=== PATIENT | female | born 1950 | race Caucasian/White ===

== ENCOUNTER 2017-12-12 12:08 | Emergency (ER) | payer OTHER, MEDICARE ==
[~2017-12-12] VITALS: Ht 172.7 cm; Wt 61.2 kg
[2017-12-12 12:29] LABS: URINE BILIRUBIN NEGATIVE (Negative); URINE BLOOD NEGATIVE (Negative); URINE CLARITY CLEAR; URINE COLOR YELLOW; URINE GLUCOSE-RANDOM* NEGATIVE (Negative); URINE KETONES NEGATIVE (Negative); URINE LEUKOCYTES NEGATIVE (Negative); URINE NITRITE NEGATIVE (Negative); URINE PROTEIN (DIPSTICK) NEGATIVE (Negative); URINE SPECIFIC GRAVITY <= 1.005 (1.005-1.035); URINE UROBILINOGEN 0.2 E.U./dl (0.2-1.0)
[2017-12-12] MEDS ORDERED: LOSARTAN-HCTZ1 EACH PO (12:35)
[2017-12-12] MEDS ORDERED: PROZAC10 MG PO (12:35)
[2017-12-12 12:51] LABS: ABSOLUTE NEUTROPHILS 5.1 thou/uL (1.4-8.2); BASOPHILS 0.8 % (0.0-2.0); CALCIUM 9.9 mg/dL (8.5-10.1); CREATININE 0.8 mg/dL (0.6-1.0); EOSINOPHILS 1.2 % (0.0-3.0); HEMATOCRIT 42.8 % (37.0-47.0); HEMOGLOBIN 14.6 gm/dL (12.0-15.0); LYMPHOCYTES 25.1 % (24.0-44.0); MCH 31.6 pg (26.0-34.0); MCHC 34.2 g/dL (28.0-37.0); MCV 92.5 fL (80.0-100.0); MONOCYTES 7.9 % (1.0-8.0); PLATELET COUNT 289 thou/uL (150-400); POTASSIUM 3.6 mmol/L (3.5-5.1); RBC 4.62 mil/uL (4.20-5.00); WBC 7.8 thou/uL (4.0-11.0)
[2017-12-12] MEDS ORDERED: CULTURELLE1 EACH PO (12:51)
[2017-12-12] MEDS ORDERED: FLAX SEED OIL1000 MG PO (12:52)
[2017-12-12] MEDS ORDERED: RESTASIS1 EACH OPHTHALMIC (12:53)
[2017-12-12] MEDS ORDERED: VITAMIN D2000 UNIT PO (12:53)
[2017-12-12] MEDS ORDERED: VITAMIN B-12500 MCG PO (12:53)
[2017-12-12] MEDS ORDERED: LOSARTAN-HCTZ1 EAC3 PO (12:54)
[2017-12-12 12:57] LABS: ALBUMIN 4.5 g/dL (3.4-5.0); DIRECT BILIRUBIN 0.1 mg/dL (<0.1-0.3); TOTAL BILIRUBIN 0.7 mg/dL (<0.1-1.0)
[2017-12-12] MEDS ORDERED: ATIVAN1 MG PO (13:40)
== END 2017-12-12 14:09 | disposition home or self-care (01) ==
LOC: ER 12:08
PROVIDERS: Emergency Medicine
DX: F41.9 Anxiety disorder, unspecified (principal); Z88.2 Allergy status to sulfonamides